=== PATIENT | male | born 1990 | race Caucasian/White ===

== ENCOUNTER 2020-03-05 18:49 | Emergency (ER) | payer MEDICARE, MEDICAID, SELFPAY ==
[2020-03-05 19:00] VITALS: BP 118/57; PULSE 79; RESP 16; TEMP 36.6; O2SAT 98; BMI 29.2
--- NOTE | 2020-03-05 19:21 | XR_ITS ---
EXAMINATION: XR CHEST CLINICAL INFORMATION: Left-sided chest pain COMPARISON: 02/13/2018 TECHNIQUE: Frontal view of the chest was obtained. FINDINGS: No significant abnormality is noted involving the heart, lungs, mediastinum, bony thorax or soft tissues. XR/XR chest 1V IMPRESSION: Unremarkable examination.
--- NOTE | 2020-03-05 19:27 | ECG_ITS ---
Test Reason : CHEST PAIN Blood Pressure : / mmHG Vent. Rate : 076 BPM Atrial Rate : 076 BPM P-R Int : 140 ms QRS Dur : 084 ms QT Int : 380 ms P-R-T Axes : 055 061 044 degrees QTc Int : 427 ms Normal sinus rhythm Possible Left atrial enlargement Borderline ECG No previous ECGs available Referred By: Zachary Pereira Electronically Signed By:KOURTNEY CHAPIN MD
--- NOTE | 2020-03-05 19:47 | ED.CHESTPAIN ---
HPI - Chest Pain General Chief Complaint: Chest Pain Stated Complaint: CP W/ POSITIONAL SO X'S 2 DAY Time Seen by Provider: 03/05/20 19:20 Source: patient Mode of arrival: ambulatory Limitations: no limitations History of Present Illness HPI narrative: patient with no significant coronary artery disease or risk factor noticed pain in left costochondral l area pain since yesterday which increases on movement and taking a deep breath. Patient denied any shortness of breath no radiation of pain to the jaw or arm MD complaint: chest pain Onset (ago): day(s) (2) Timing of current episode: constant Prior episodes: No Onset: during rest Pain location: left chest Pain radiation: none Severity: mild Quality: sharp Relieving factors: nothing and movement Exacerbating factors: nothing and movement Treatment prior to arrival: none Risk Factors Coronary artery disease risk factors: none and smoking history Related Data Previous Rx's Medication Instructions Recorded tramadol 50 mg PO Q6H PRN #20 tab 03/05/20 Allergies Allergy/AdvReac Type Severity Reaction Status Date / Time amoxicillin [AMOXICILLIN] Allergy Unknown UNKNOWN Unverified 01/18/20 18:54 naproxen [NAPROXEN] Allergy Unknown HIVES Unverified 01/29/20 18:53 penicillin G [PENICILLIN G] Allergy Unknown UNKNOWN Unverified 01/18/20 18:54 Review of Systems Review of Systems: REVIEW OF SYSTEMS: Pertinent positives and negatives are stated above in the history. GEN: no fevers, chills, fatigue HEENT: no nasal congestion, sore throat, ear pain NEURO: no headache, dizziness, focal weakness PULM: no cough, shortness of breath CV: no palpitations, LE edema ABD: no abdominal pain, nausea, vomiting, diarrhea : no dysuria, urgency, frequency SKIN: no rash ROS otherwise negative x 10 [facility] Social History Social History Advance Directives: No Advance Directives Information Provided: Yes Physical Exam Vital Signs: Vital Signs: Vital Signs Temp Pulse Resp BP Pulse Ox 03/05/20 19:00 98 F 79 16 118/57 L 98 Body Mass Index 29.2 Appearance: Alert. Oriented X3. No acute distress. Eyes: Pupils equal, round and reactive to light. ENT: Pharynx normal. Neck: Normal inspection. Neck supple. CVS: Normal heart rate and rhythm. Pulses normal. tenderness left 2nd costochondral area Respiratory: No respiratory distress. Breath sounds normal. Abdomen: Soft and nontender. Skin: Skin warm and dry. Normal skin color. Normal skin turgor. Extremities: No lower extremity edema. Good range of movement Neuro: Oriented X 3. No motor deficit. No sensory deficit. MDM - Chest Pain Differential Diagnosis Differential diagnosis: Likely pneumothorax, atypical chest pain and costochondritis ECG Data ECG #1: Attestation: I personally reviewed and interpreted this ECG as follows: ECG interpretation date: 03/05/20 Interpretation: all sinus rate with heart rate of 76 normal intervals normal axis no acute ST T wave changes no acute ischemia impression normal EKG Discharge Plan Discharge Clinical Impression: Costalchondritis Patient Disposition: Home, Self-Care Instructions: Costochondritis (ED) Additional Instructions: apply ice, take tramadol for pain Prescriptions: New tramadol 50 mg tablet 50 mg PO Q6H PRN (Reason: pain) Qty: 20 RF: 0
[2020-03-05] MEDS: traMADoL HCL 50 MG TABLET PO (20:11)
== END 2020-03-05 20:16 | disposition home or self-care (01) ==
PROVIDERS: Emergency Provider Internal Medicine; PCP Internal Medicine
DX: M94.0 Chondrocostal junction syndrome [Tietze] (principal); R07.9 Chest pain, unspecified; Z79.899 Other long term (current) drug therapy
CPT/HCPCS: 71045; 93005; 99283

== ENCOUNTER 2020-04-03 16:43 | Outpatient (REF) | payer OTHER, SELFPAY | END 2020-04-03 16:44 | disposition home or self-care (01) | LOC: HO.LNP 16:43 | DX: Z20.828 Contact with and (suspected) exposure to other viral communicable diseases (principal) | CPT/HCPCS: U0003 ==

== ENCOUNTER 2023-05-25 12:11 | Emergency (ER) | payer OTHER, SELFPAY ==
--- NOTE | ~2023-05-25 | US_ITS ---
EXAMINATION: US ABDOMEN LIMITED CLINICAL INFORMATION: Epigastric/right upper quadrant abdominal pain. COMPARISON: CT abdomen pelvis 04/15/2018 TECHNIQUE: Real-time imaging of the right upper quadrant abdominal viscera. FINDINGS: PANCREAS: Normal. LIVER: The liver is enlarged measuring over 19 cm in greatest length The liver contour is normal. Parenchymal echogenicity is slightly increased suggesting steatosis. No focal hepatic lesion. There is no intrahepatic biliary duct dilatation seen. GALLBLADDER: Normal. The gallbladder is physiologically distended without evidence of stones, sludge, polyps, wall thickening or pericholecystic fluid. COMMON BILE DUCT: Normal in caliber measuring 0.4 cm in diameter. RIGHT KIDNEY: No hydronephrosis. No renal calculi or focal parenchymal lesions. The kidney measures 10.4 cm in maximum dimension. FREE FLUID: None. VASCULAR: Incidental note made of elevated celiac velocity of 312 cm/s with expiration and normal velocity of 171 cm/s with inspiration. US/US abdomen limited IMPRESSION: 1. Enlarged fatty liver. 2. Elevated celiac velocity with expiration. If there is concern for celiac stenosis, CTA can be performed.
--- NOTE | 2023-05-25 12:29 | ED.ABDPAIN ---
HPI - Abdominal Pain General Chief Complaint: Abdominal Pain Stated Complaint: Upper Stomach Pain Time Seen by Provider: 05/26/23 01:10 Source: patient, RN notes reviewed and old records reviewed Mode of arrival: ambulatory Limitations: no limitations History of Present Illness HPI narrative: 32-year-old female to male presents for evaluation of abdominal pain and a possible hemorrhoid Patient reports that he has had left upper abdominal pain for the last few months on and off pain Pain intensity worse after eating He denies any history abdominal surgeries. 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 He states that a few weeks ago he did have bright red blood per rectum with bowel movements. He is concerned he has a hemorrhoid because ?I have a small lump there. ? He reports that he does tend to strain when he has bowel movements Related Data Previous Rx's Medication Instructions Recorded tramadol 50 mg tablet 50 mg PO Q6H PRN pain #20 tabs 03/05/20 hydrocortisone 2.5 % topical cream 1 appl SC BID PRN hemorrhoids 5 05/26/23 with perineal applicator days #30 grams (Anusol-HC) omeprazole 20 mg capsule,delayed 20 mg PO DAILY #14 caps 05/26/23 release polyethylene glycol 3350 17 17 g PO DAILY 2 weeks #238 grams 05/26/23 gram/dose oral powder (Miralax) Allergies Allergy/AdvReac Type Severity Reaction Status Date / Time amoxicillin [AMOXICILLIN] Allergy Unknown UNKNOWN Verified 05/25/23 12:29 naproxen [NAPROXEN] Allergy Unknown HIVES Verified 05/25/23 12:29 penicillin G [PENICILLIN G] Allergy Unknown UNKNOWN Verified 05/25/23 12:29 Review of Systems Constitutional: Denies chills and Denies fever(s) Eyes: Denies blurry vision Cardiovascular: Denies chest pain and Denies dyspnea Respiratory: Denies cough and Denies dyspnea Gastrointestinal: Reports abdominal pain, Reports hematochezia, Reports constipation, Reports nausea and Denies vomiting Musculoskeletal: Denies back pain Skin/Breast: Denies rash PMFSH Social History Social History Advance Directives: No Advance Directives Information Provided: No Physical Exam ED Vital Signs: Vital Signs - 24 hr 05/25/23 12:30 Temperature 98 F Pulse Rate 65 Respiratory Rate 18 Blood Pressure 105/63 Pulse Oximetry 98 Oxygen Delivery Method Room Air BMI result Body Mass Index 24.7 Const General: healthy appearing, comfortable, no acute distress, alert and awake Nutritional Appearance: well nourished Orientation/consciousness: patient oriented x3 HENMT Head: Yes normocephalic and Yes atraumatic Eyes Eyelids: Yes eyelids normal Conjunctivae: conjunctivae normal Sclerae: sclerae normal Corneas: corneas normal Pupils: Equal, round and reactive pupils present EOM: EOMs intact bilaterally Neck Neck: Yes full ROM Resp Effort & Inspection: normal respiratory effort, able to speak in complete sentences and not labored Cardio Rate: regular rate Rhythm: regular rhythm GI Inspection: No distended Palpation (GI): Soft to palpation, not firm, nontender, no guarding and not rigid Rectal Exam - Male: Yes Visual inspection abnormal and Yes hemorrhoids (Small nonthrombosed hemorrhoid at the 10 o'clock position) Skin General skin exam: elasticity normal Neuro General: patient oriented x3 Cranial nerves: Yes Equal, round and reactive pupils present and Yes Bilaterally intact EOM present Cognition (Neuro): normal cognition Extrem Other: Moving all extremities well without any obvious deformities Course Course Course Narrative: RME: 32 year-old M w/ PMHx presenting to the ED c/o LUQ abdominal pain x few months, now with worsening abdominal pain. Also reports ?hemorrhoid with blood when wipes (intermittently) x2 episodes. +nausea/diarrhea. denies vomiting. Also reports Lyme over a year ago and never took the medication abdomen soft w/epigastric/RUQ ttp Labs, UA, US ordered Full HPI, ROS and PE to be performed by primary ED provider. Medical Decision Making Medical Decision Making MDM Narrative: 32-year-old female to male presents for evaluation of abdominal pain and rectal pain. The rectal exam appears to show a small hemorrhoid which will be treated with Anusol and Sitz bath as well as MiraLax. Patient's hemoglobin hematocrit are within normal limits, no evidence of microcytic anemia. Patient's abdominal pain is likely related to gastritis. He currently does not have the pain. An ultrasound right upper quadrant that rules out biliary disease. No history of abdominal surgeries. LFTs within normal limits, lipase is also within normal limits. No evidence of pancreatitis. Patient is quite comfortable appearing able tolerate p.o.. The patient's abdominal exam is reassuring, less likely to be biliary obstruction or bowel perforation. The patient can follow-up with GI as an outpatient Differential Diagnosis Differential Diagnoses: The differential diagnosis associated with the presentation includes Gastritis Gastroenteritis Peptic ulcer disease Pancreatitis Biliary disease Cholelithiasis Acute cholecystitis Abdominal pain Hemorrhoids Lab Data MDM Lab Attestation statement: I reviewed the patient's lab results. No leukocytosis or anemia as above no significant electrolyte abnormalities. LFTs within normal limits. 05/25/23 13:15 05/25/23 13:15 Labs: Lab Results 05/25/23 Range/Units 13:15 WBC 6.4 (4.8-10.8) X10*3/uL RBC 4.53 L (4.60-5.80) X10*6/uL Hgb 14.2 (14.0-18.0) g/dl Hct 43.4 (42.0-52.0) % MCV 95.8 (80.0-98.0) fL MCH 31.3 (27.0-33.0) pg MCHC 32.7 (31.0-36.0) g/dl RDW 12.7 (11.0-16.0) % Plt Count 232 (160-400) X10*3/uL MPV 10.7 (9.4-12.4) fL Immature Gran % (Auto) 0.2 (0.0-0.4) % Neut % (Auto) 57.5 (45-73) % Lymph % (Auto) 33.1 (20-40) % [place] % (Auto) 6.5 (2-11) % Eos % (Auto) 1.6 (0-4) % Baso % (Auto) 1.1 (0-2) % Lymph # (Auto) 2.1 (1.2-4.9) X10*3/uL [place] # (Auto) 0.4 (0.1-1.2) X10*3/uL Eos # (Auto) 0.1 (0.0-0.4) X10*3/uL Baso # (Auto) 0.1 (0.0-0.2) X10*3/uL Abs Immat Gran (auto) 0.01 (0.00-0.03) X10*3/uL Absolute Neuts (auto) 3.7 (2.0-8.3) x10*3/uL Absolute Nucleated RBC 0.000 (0.0-0.012) X10*3/uL Nucleated RBC % (auto) 0.0 (0.0-0.2) /100WBC Sodium 143 (135-145) mmol/L Potassium 4.1 (3.3-5.1) mmol/L Chloride 108 (96-108) mmol/L Carbon Dioxide 31 H (22-29) mmol/L Anion Gap 8 L (12-20) BUN 9 (9-16) mg/dL Creatinine 0.82 (0.5-1.4) mg/dL Estim Creat Clear Calc 108.2 Estimated GFR > 60 Random Glucose 85 (60-115) mg/dL Calcium 9.2 (8.4-10.2) mg/dL Magnesium 1.9 (1.6-2.6) mg/dL Total Bilirubin 0.5 (0.0-1.0) mg/dL Direct Bilirubin 0.2 (0.0-0.5) mg/dL AST 20 (5-37) U/L ALT 14 (0-40) U/L Alkaline Phosphatase 53 (39-117) U/L Total Protein 7.1 (6.5-8.0) g/dL Albumin 4.3 (3.5-5.0) g/dL Lipase 26 (8-78) U/L Radiology Impression Discussion of test interpretation with radiology: I have reviewed the radiologist's reading. (No evidence of CBD dilatation or cholecystitis) Tests considered The following testing was considered but not selected: Consider CT scan of the abdomen pelvis Discharge Plan Discharge Clinical Impression: Abdominal pain, External hemorrhoid Patient Disposition: Home, Self-Care Instructions: Gastritis (ED), Hemorrhoids (ED) Additional Instructions: Your workup in the ER today was reassuring. This includes your blood work and ultrasound. I recommend that you follow-up with a GI doctor for an upper endoscopy and with or without colonoscopy I recommend that you take omeprazole daily for the next 2 weeks Avoid spicy, greasy foods You should take MiraLax every night for the next 2 weeks You may also use Epsom salt warm baths to help with the external hemorrhoid Return for new or worsening symptoms Prescriptions: New polyethylene glycol 3350 [Miralax] 17 gram/dose powder 17 g PO DAILY 14 Days Qty: 238 0RF hydrocortisone [Anusol-HC] 2.5 % cream with perineal applicator 1 appl SC BID PRN (Reason: hemorrhoids) 5 Days Qty: 30 0RF omeprazole 20 mg capsule,delayed release(DR/EC) 20 mg PO DAILY Qty: 14 0RF No Action tramadol 50 mg tablet 50 mg PO Q6H PRN (Reason: pain) Qty: 20 0RF Referrals: Daily Berkowitz MD [Physician] - (? gastritis. ? endoscopy. history of alcohol abuse) Stand Alone Forms: Work/School Release
[2023-05-25 12:30] VITALS: BP 105/63; PULSE 65; RESP 18; TEMP 36.6; O2SAT 98; BMI 24.7
[2023-05-25 13:20] LABS: MANUAL DIFF FLAG NO
[2023-05-25 13:22] LABS: Basophils Absolute Auto 0.1 X10*3/uL (0.0-0.2); Basophils Percent Auto 1.1 % (0-2); Eosinophils Absolute Auto 0.1 X10*3/uL (0.0-0.4); Eosinophils Percent Auto 1.6 % (0-4); Hematocrit 43.4 % (42.0-52.0); Hemoglobin 14.2 g/dl (14.0-18.0); Imm Gran Abs Auto 0.01 X10*3/uL (0.00-0.03); Imm Gran Pct Auto 0.2 % (0.0-0.4); Lymphocytes Absolute Auto 2.1 X10*3/uL (1.2-4.9); Lymphocytes Percent Auto 33.1 % (20-40); Mean Corpuscular HGB Conc 32.7 g/dl (31.0-36.0); Mean Corpuscular Hemoglobin 31.3 pg (27.0-33.0); Mean Corpuscular Volume 95.8 fL (80.0-98.0); Mean Platelet Volume 10.7 fL (9.4-12.4); Monocytes Absolute Auto 0.4 X10*3/uL (0.1-1.2); Monocytes Percent Auto 6.5 % (2-11); Neutrophils Absolute Auto 3.7 x10*3/uL (2.0-8.3); Neutrophils Percent Auto 57.5 % (45-73); Platelet Count 232 X10*3/uL (160-400); Red Blood Count 4.53 X10*6/uL (4.60-5.80); Red Cell Distribution Width 12.7 % (11.0-16.0); White Blood Count 6.4 X10*3/uL (4.8-10.8)
[2023-05-25 13:38] LABS: Alanine Aminotransferase 14 U/L (0-40); Albumin Level 4.3 g/dL (3.5-5.0); Alkaline Phosphatase 53 U/L (39-117); Anion Gap 8 (12-20); Aspartate Amino Transferase 20 U/L (5-37); Bilirubin Direct 0.2 mg/dL (0.0-0.5); Bilirubin Total 0.5 mg/dL (0.0-1.0); Blood Urea Nitrogen 9 mg/dL (9-16); Calcium 9.2 mg/dL (8.4-10.2); Carbon Dioxide 31 mmol/L (22-29); Chloride 108 mmol/L (96-108); Creatinine Clr Calc Pharmacy 108.2; Estimated Glomerular Filt Rate > 60; Glucose Random 85 mg/dL (60-115); Lipase 26 U/L (8-78); Magnesium 1.9 mg/dL (1.6-2.6); Potassium 4.1 mmol/L (3.3-5.1); Sodium 143 mmol/L (135-145); Total Protein 7.1 g/dL (6.5-8.0)
--- NOTE | 2023-05-26 01:14 | PC.NURSE ---
Pt is a 32 y/o male (AFAB), who presents for evaluation of upper abd pain that has been constant and ongoing for 2 months with no resolution. Pt reports being seen at urgent care earlier today for similar pain and sent here for further work-up. Pain is constant and rated 2/10. Denies fever and any trauma. Reports some occassional nausea, but no vomiting or headache/dizziness. Unclear about presence of diarrhea or constipation. History of pancreatitis 5-6 years ago. One year alcohol sober. No illicit drug use. Denies chest pain or shortness of breath. No known history of gallbladder, liver, or kidney problems.
[2023-05-26 21:38] LABS: Lyme Abs Screen <0.90 index
== END 2023-05-26 02:06 | disposition home or self-care (01) ==
PROVIDERS: Physician Assistant; Emergency Provider Internal Medicine
DX: K64.4 Residual hemorrhoidal skin tags (principal); R10.13 Epigastric pain; R10.11 Right upper quadrant pain; Z79.899 Other long term (current) drug therapy
CPT/HCPCS: 36415; 76705; 80048; 80076; 83690; 83735; 85025; 86617; 86618; 99282; 99284